=== PATIENT | male | born 2000 | race Hispanic/Latino ===

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

== ENCOUNTER 2022-01-27 15:13 | Emergency (ER) | payer BC, SELFPAY ==
[2022-01-27] MEDS ORDERED: Acetaminophen 500 MG TAB ONE (16:42)
== END 2022-01-27 16:52 | disposition home or self-care (01) ==
LOC: ERS 15:13
DX: M25.562 Pain in left knee (principal)